=== PATIENT | female | born 1965 | race Hispanic/Latino ===

== ENCOUNTER 2024-02-29 07:28 | Emergency (ER) | payer BC ==
[~2024-02-29] VITALS: Ht 149.9 cm; Wt 64.9 kg
[2024-02-29 07:40] VITALS: PULSE 76; RESP 17; TEMP 97.8
[2024-02-29] MEDS: ONDANSETRON HCL INJ 2MG/ML 2ML 2 MG/ML VIAL IV STA (08:10)
[2024-02-29] MEDS: SODIUM CHLORIDE 0.9% 1000ML 1,000 ML IV STA (08:10)
[2024-02-29] MEDS: KETOROLAC TROMETHAMINE 30 MG/ML VIAL IV STA ×2 (08:10→11:21)
[2024-02-29] MEDS ORDERED: KETOROLAC TROMETHAMINE 30 MG/ML VIAL ONE (08:12)
[2024-02-29 08:42] LABS: POTASSIUM 3.7 mmol/L (3.5-5.1)
[2024-02-29 08:43] LABS: ANION GAP 19.7 mmol/L (8-16); CALCIUM 9.7 mg/dL (8.4-10.2); CREATININE, SERUM 0.97 mg/dL (0.57-1.11)
[2024-02-29 08:46] LABS: CLARITY,URINE TURBID (CLEAR); COLOR,URINE BROWN (YELLOW)
[2024-02-29 08:47] LABS: BACTERIA,URINE FEW /HPF; BILIRUBIN,URINE SMALL (NEGATIVE); EPITHELIAL CELLS,URINE FEW /LPF; GLUCOSE, URINE NEGATIVE (NEGATIVE); KETONES,URINE NEGATIVE (NEGATIVE); LEUKOCYTE ESTERASE ,URINE NEGATIVE (NEGATIVE); NITRITE,URINE NEGATIVE (NEGATIVE); PH,URINE 6 (5 - 7); PROTEIN,URINE DIPSTICK 2+ (NEGATIVE); RBC,URINE >50 /HPF (0-5); URINE UROBILINOGEN 0.2 mg/dL (0.2 - 1); WBC,URINE (MAN) 0-5 /HPF (0-5)
[2024-02-29 09:01] LABS: EOSINOPHILS % 0.7 % (0.0-6.0); HEMATOCRIT 42.2 % (34.2-44.1); HEMOGLOBIN 13.9 g/dL (12.0-16.0); MEAN CORPUSCULAR HEMOGLOBIN 29.3 pg (28-32); MEAN CORPUSCULAR HGB CONC 32.9 g/dL (31-35); MONOCYTES % 5.2 % (4.4-11.3); PLATELET COUNT 342 x10e3/uL (140-360); RED BLOOD COUNT 4.74 x10e6/uL (3.6-5.1); RED CELL DISTRIBUTION WIDTH 12.7 % (11.7-14.4); WHITE BLOOD COUNT 7.26 x10e3/uL (4.8-10.8)
[2024-02-29 09:02] LABS: BASOPHILS # (AUTO) 0.1 (0.0-0.1); BASOPHILS % 0.8 % (0.0-1.0); EOSINOPHILS # (AUTO) 0.1 (0.0-0.4); MONOCYTES # (AUTO) 0.4 (0.2-0.8); NEUTROPHILS # (AUTO) 4.7 (2.1-6.9)
[2024-02-29] MEDS: Morphine 4mg INJECTION 4 MG/ML INJ IV ONE ×2 (09:43→11:20)
[2024-02-29] MEDS ORDERED: ULTRAM 50MG50 MG PO (10:50)
[2024-02-29] MEDS ORDERED: FLOMAX0.4 MG PO (10:52)
[2024-02-29] MEDS ORDERED: ONDANSETRON ODT4 MG PO (10:53)
[2024-02-29] MEDS ORDERED: ONDANSETRON HCL INJ 2MG/ML 2ML 2 MG/ML VIAL ONE (11:20)
[2024-02-29 11:44] VITALS: BP 141/74; PULSE 74; RESP 18; O2SAT 100
[2024-03-05] MEDS ORDERED: OZEMPIC0.25 MG/02 INJ (10:18)
[2024-03-05] MEDS ORDERED: FIBER GUMMIES2 GM PO (10:29)
[2024-03-05] MEDS ORDERED: VITAMIN E400 UNI1 PO (10:29)
== END 2024-02-29 11:46 | disposition home or self-care (01) ==
LOC: ER 07:40
DX: R10.32 Left lower quadrant pain (principal); R11.0 Nausea; Z87.442 Personal history of urinary calculi
CPT/HCPCS: 36415; 74176; 80048; 81001; 85025; 99284; J1885; J2270; J2405; J7030